=== PATIENT | female | born 2005 | race Caucasian/White ===

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

== ENCOUNTER 2025-02-21 02:31 | Emergency (ER) | payer OTHER ==
[2025-02-21] MEDS ORDERED: Famotidine/PF 20 mg/2ml Vial ONE (02:58)
[2025-02-21] MEDS ORDERED: Ondansetron PF 4 MG/2 ML Vial ONE (02:58)
[2025-02-21 03:43] LABS: #Basophils 0.07 10x3/uL (0.0-0.2); #Eosinophils 0.05 10x3/uL (0.0-0.5); #Monocytes 0.61 10x3/uL (0.0-1.1); #Neutrophils 5.86 10x3/uL (1.5-8.4); %Basophils 0.8 % (0.0-2.0); %Eosinophils 0.6 % (0.0-6.0); %Lymphocytes 22.4 % (18.0-47.0); %Monocytes 7.1 % (0.0-10.0); %Neutrophils 68.2 % (40.0-75.0); Hematocrit 37.0 % (34.9-44.5); Hemoglobin 12.8 g/dL (12.0-15.5); Mean Corpuscular Hemoglobin 31.1 pg (27.0-33.0); Mean Corpuscular Volume 89.8 fL (81.6-98.3); Platelet Count 290 10x3/uL (150-450); Red Blood Cell (RBC) Count 4.12 10x6/uL (3.90-5.03); White Blood Cell (WBC) Count 8.59 10x3/uL (3.5-10.5)
[2025-02-21 04:02] LABS: Anion Gap 17 mmol/L (10-20); BUN (Urea Nitrogen) 10 mg/dL (7.0-18.7); Calc. Creatinine Clearance 0 mL/min (70-130); Calcium 8.4 mg/dL (7.8-10.44); Carbon Dioxide 19 mmol/L (22-29); Chloride 108 mmol/L (98-107); Glucose 155 mg/dL (70-105); Potassium 3.7 mmol/L (3.5-5.1); Sodium 140 mmol/L (136-145)
[2025-02-21 04:04] LABS: Acetaminophen Less than 10 mcg/mL (Less than 10); Salicylate Less than 8.0 mg/dL (Less than 8.0)
[2025-02-21 05:53] LABS: BHCG - Serum Negative (NEGATIVE); Pregs Control Bar Appear? YES (CONTROL BAR)
[2025-02-21 05:54] LABS: Pregs Control Background? CLEAR/WHITE (CLR/WHITE)
== END 2025-02-21 06:23 | disposition home or self-care (01) ==
LOC: CSHERS 02:31
DX: F10.129 Alcohol abuse with intoxication, unspecified (principal); F17.210 Nicotine dependence, cigarettes, uncomplicated; F17.290 Nicotine dependence, other tobacco product, uncomplicated
CPT/HCPCS: 80048; 80307; 84703; 85025; 96361; 96374; 96375; J1308; J2405